=== PATIENT | female | born 1950 | race Caucasian/White ===

== ENCOUNTER 2024-01-19 09:00 | Day surgery (SDC) | payer MEDICARE, OTHER ==
[2024-01-19] MEDS: Polymyxin B/Trimethoprim 10 ML Bottle EYELF SCH (10:33)
[2024-01-19] MEDS: Brimonidine 0.2% Ophth Soln 5 ML Bottle EYELF SCH (10:37)
[2024-01-19] MEDS: Phenylephrine 2.5% Ophth Soln 2 ML Bot EYELF SCH (10:43)
[2024-01-19] MEDS: Tropicamide 1% Ophth Soln 3 ML Bottle EYELF SCH (10:48)
[2024-01-19] MEDS: Tetracaine HCl/PF 0.5% 4 ML Bottle EYEBOTH SCH (11:16)
[2024-01-19] MEDS: Lidocaine 1% PF 2 ML SDV INJECT SCH (11:38)
[2024-01-19] MEDS: Cefuroxime 10 MG/ML SYRINGE EYELF SCH (11:49)
[2024-01-19] MEDS: Pilocarpine 4% Ophth Soln 15 ML Bot EYELF SCH (11:50)
== END 2024-01-19 12:03 | disposition home or self-care (01) ==
LOC: JD.SDS 09:00
PROVIDERS: ATTEND Ophthalmology
DX: E11.36 Type 2 diabetes mellitus with diabetic cataract (principal); I10 Essential (primary) hypertension; H35.3131 Nonexudative age-related macular degeneration, bilateral, early dry stage; H35.363 Drusen (degenerative) of macula, bilateral; H11.153 Pinguecula, bilateral; G35 Multiple sclerosis; H35.373 Puckering of macula, bilateral; Z79.84 Long term (current) use of oral hypoglycemic drugs; Z79.899 Other long term (current) drug therapy
CPT/HCPCS: A9270-GY; J0697; J3490

== ENCOUNTER 2024-01-23 08:00 | Day surgery (SDC) | payer MEDICARE, OTHER ==
[~2024-01-23 08:00] MED LIST: Lidocaine 1% 5 ML VIAL ONE; Midazolam 1 MG/ML 2 ML SDV ONE; Morphine 8 MG, EPINEPHrine 0.3 MG, Cefuroxime 750 MG, Ketorolac 30 MG, Sodium Chloride ... PRN; Propofol 200 MG/20 ML SDV ONE; Sodium Chloride 0.9% 10 ML Syringe FLUSH PRN; Sodium Chloride 0.9% 10 ML Syringe FLUSH SCH; fentaNYL 100 MCG/2 ML SDV ONE
[2024-01-23] MEDS: Lactated Ringers 1,000 ML IV SCH (08:20)
[2024-01-23 09:44] LABS: INR 1.05; PROTHROMBIN TIME 11.2 SECONDS (9.7-12.0)
[2024-01-23 09:45] LABS: PTT,PARTIAL THROMBOPLSTIN TIME 25.2 SECONDS (21.7-31.4)
[2024-01-23] MEDS ORDERED: ePHEDrine 50 MG/ML SDV ONE (09:52)
[2024-01-23] MEDS ORDERED: ceFAZolin 2 GM Vial ONE (09:53)
[2024-01-23] MEDS ORDERED: Ondansetron 4 MG/2 ML SDV ONE (09:55)
[2024-01-23] MEDS ORDERED: Lactated Ringers 1,000 ML ONE (10:21)
[2024-01-23] MEDS ORDERED: Phenylephrine 1% 10 MG/ML SDV ONE (10:30)
[2024-01-23] MEDS ORDERED: Ondansetron 4 MG/2 ML SDV IVPUSH PRN (10:34)
[2024-01-23] MEDS ORDERED: HYDROmorphone 0.5 MG/0.5 ML Syringe IVPUSH PRN (10:34)
[2024-01-23] MEDS ORDERED: fentaNYL 100 MCG/2 ML SDV IVPUSH PRN (10:34)
[2024-01-23] MEDS ORDERED: Ketorolac 15 MG/ML SDV ONE (11:26)
[2024-01-23] MEDS: Morphine 8 MG, EPINEPHrine 0.3 MG, Cefuroxime 750 MG, Ketorolac 30 MG, Sodium Chloride ... PRN (11:30)
[2024-01-23] MEDS: Tranexamic Acid 1,000 MG/10 ML Vial ONE (11:31)
[2024-01-23] MEDS: Vancomycin 1 GM SDV ONE (11:31)
[2024-01-23] MEDS: oxyCODONE 5 MG Tab PO PRN (13:31)
== END 2024-01-23 15:57 | disposition home or self-care (01) ==
LOC: JD.SDS 08:00
PROVIDERS: ATTEND Orthopaedic Surgery
DX: M16.11 Unilateral primary osteoarthritis, right hip (principal); E11.9 Type 2 diabetes mellitus without complications; I10 Essential (primary) hypertension; Z87.891 Personal history of nicotine dependence; Z79.84 Long term (current) use of oral hypoglycemic drugs; Z79.899 Other long term (current) drug therapy
CPT/HCPCS: 0055T; 27130; 36415; 73501; 82947; 85610; 85730; 86850; 86900; 86901; 97116; 97161; A9270; C1713; C1776; J0171; J0690; J0697; J1885; J2250; J2270; J2371; J2405; J2704; J3010; J3370; J7030; J7120; 01214; 99100; J3490

== ENCOUNTER 2024-02-16 11:10 | Day surgery (SDC) | payer MEDICARE, OTHER ==
[2024-02-16] MEDS: Polymyxin B/Trimethoprim 10 ML Bottle EYERT SCH (11:05)
[2024-02-16] MEDS: Brimonidine 0.2% Ophth Soln 5 ML Bottle EYERT SCH (11:10)
[2024-02-16] MEDS: Phenylephrine 2.5% Ophth Soln 2 ML Bot EYERT SCH (11:15)
[2024-02-16] MEDS ORDERED: Ondansetron 4 MG/2 ML SDV IVPUSH PRN (11:19)
[2024-02-16] MEDS: Tropicamide 1% Ophth Soln 3 ML Bottle EYERT SCH (11:20)
[2024-02-16] MEDS: Tetracaine HCl/PF 0.5% 4 ML Bottle EYEBOTH SCH (12:12)
[2024-02-16] MEDS: Lidocaine 1% PF 2 ML SDV INJECT SCH (12:43)
[2024-02-16] MEDS: Cefuroxime 10 MG/ML SYRINGE EYERT SCH (12:57)
[2024-02-16] MEDS: Pilocarpine 4% Ophth Soln 15 ML Bot EYERT SCH (12:57)
== END 2024-02-16 13:10 | disposition home or self-care (01) ==
LOC: JD.SDS 11:10
PROVIDERS: ATTEND Ophthalmology
DX: E11.36 Type 2 diabetes mellitus with diabetic cataract (principal); H25.811 Combined forms of age-related cataract, right eye; I10 Essential (primary) hypertension; Z79.899 Other long term (current) drug therapy; Z98.890 Other specified postprocedural states; Z87.891 Personal history of nicotine dependence; Z96.1 Presence of intraocular lens; H35.373 Puckering of macula, bilateral; G35 Multiple sclerosis; H35.3131 Nonexudative age-related macular degeneration, bilateral, early dry stage; H11.153 Pinguecula, bilateral
CPT/HCPCS: 66984; A9270; J0697; 00142; J3490; V2632